=== PATIENT | male | born 1950 | race Caucasian/White ===

== ENCOUNTER → 2024-01-14 09:24 | Outpatient (REF) | payer MEDICARE, OTHER, SELFPAY ==
[2024-01-14 12:54] LABS: % Basophils 0.7 % (0-2); % Eosinophils 5.4 % (0-6); % Immature Granulocytes 0.2 % (0-0.5); % Lymphocytes 33.6 % (20.5-51.1); % Neutrophils 50.1 % (42.2-75.2); Absolute Eosinophils 0.2 10^3/uL (0-0.7); Absolute Lymphocytes 1.4 10^3/uL (1.2-3.4); Absolute Monocytes 0.4 10^3/uL (0.1-0.6); Absolute Neutrophils 2.1 10^3/uL (1.4-6.5); Hematocrit 43.3 % (39.0-52.0); Hemoglobin 14.9 g/dL (13.0-18.0); Mean Corp Hgb Conc. 34.4 g/dL (33.0-37.0); Mean Corpuscular Hgb 31.3 pg (27.0-31.0); Nucleated Red Blood Cells % 0 % (-); Red Blood Cell Count 4.76 10^6/uL (4.70-6.10); Red Cell Dist. Width 13.3 % (11.5-14.5); White Blood Cell Count 4.1 10^3/uL (4.8-10.8)
[2024-01-14 13:19] LABS: ALT (SGPT) 15 U/L (0-50); AST (SGOT) 24 U/L (17-59); Albumin 4.1 g/dl (3.5-5.0); Alkaline Phosphatase 66 U/L (38-126); HDL Cholesterol 58 mg/dl; LDL Cholesterol, Calculated 73 mg/dl; Total Cholesterol 158 mg/dl (50-199); Total Protein 6.8 g/dl (6.3-8.2); Triglyceride 135 mg/dl (10-149); Very Low Density Lipoprotein 27 mg/dl (0-30)
== END ==
LOC: HWLAB 09:24
PROVIDERS: ATTENDING PHYSICIAN Internal Medicine
DX: E78.2 Mixed hyperlipidemia (principal); I35.1 Nonrheumatic aortic (valve) insufficiency; E66.3 Overweight; D72.819 Decreased white blood cell count, unspecified
CPT/HCPCS: 36415; 80061; 80076; 85025

== ENCOUNTER → 2024-03-25 15:42 | Outpatient (REF) | payer MEDICARE, OTHER, SELFPAY | LOC: HWRCS 15:42 | PROVIDERS: ATTENDING PHYSICIAN Internal Medicine Cardiovascular Disease; FAMILY PHYSICIAN Internal Medicine | DX: I35.0 Nonrheumatic aortic (valve) stenosis (principal) | CPT/HCPCS: 93306 ==

== ENCOUNTER → 2024-05-26 09:17 | Outpatient (REF) | payer MEDICARE, OTHER, SELFPAY ==
[2024-05-26 09:59] LABS: % Basophils 0.8 % (0-2); % Eosinophils 5.5 % (0-6); % Immature Granulocytes 0.3 % (0-0.5); % Lymphocytes 34.1 % (20.5-51.1); % Monocytes 11.5 % (1.7-9.3); % Neutrophils 47.8 % (42.2-75.2); Absolute Eosinophils 0.2 10^3/uL (0-0.7); Absolute Lymphocytes 1.4 10^3/uL (1.2-3.4); Absolute Monocytes 0.5 10^3/uL (0.1-0.6); Absolute Neutrophils 1.9 10^3/uL (1.4-6.5); Hematocrit 43.3 % (39.0-52.0); Hemoglobin 14.9 g/dL (13.0-18.0); Mean Corp Hgb Conc. 34.4 g/dL (33.0-37.0); Mean Corpuscular Hgb 31.6 pg (27.0-31.0); Mean Corpuscular Volume 91.7 fL (80.0-94.0); Mean Platelet Volume 11.1 fL (7.4-10.4); Nucleated Red Blood Cells % 0 % (-); Platelet Count 161 10^3/uL (130-400); Red Blood Cell Count 4.72 10^6/uL (4.70-6.10); Red Cell Dist. Width 13.1 % (11.5-14.5)
[2024-05-26 10:15] LABS: ALT (SGPT) 17 U/L (0-50); AST (SGOT) 25 U/L (17-59); Albumin 4.2 g/dl (3.5-5.0); Alkaline Phosphatase 69 U/L (38-126); Blood Urea Nitrogen 16 mg/dl (9-20); Calcium 9.6 mg/dl (8.4-10.2); Carbon Dioxide 27 mmol/L (22-30); Chloride 106 mmol/L (98-107); Glucose 111 mg/dl (70-99); Potassium 4.3 mmol/L (3.5-5.1); Sodium 142 mmol/L (135-145); Total Bilirubin 0.8 mg/dl (0.2-1.3); Total Protein 6.7 g/dl (6.3-8.2); eGFR > 60.00
== END ==
LOC: SDSPAT 09:17
PROVIDERS: ATTENDING PHYSICIAN Internal Medicine Interventional Cardiology; FAMILY PHYSICIAN Internal Medicine; OTHER PHYSICIAN Internal Medicine Cardiovascular Disease
DX: Z01.818 Encounter for other preprocedural examination (principal); I35.0 Nonrheumatic aortic (valve) stenosis
CPT/HCPCS: 36415; 80053; 85025; 93005

== ENCOUNTER 2024-06-04 06:09 | Day surgery (SDC) | payer MEDICARE, OTHER, SELFPAY ==
[2024-05-26 09:33] VITALS: BMI 31.4
[2024-06-04] VITALS (42 sets, daily range): BP systolic 51–154; BP diastolic 31–101
[2024-06-04] MEDS: NSS 281 ML IV (06:49)
[2024-06-04] MEDS: LOW STRENGTH ASPIRIN 162 MG PO (07:07)
[2024-06-04] MEDS: NSS 1000 IV (08:55)
[2024-06-04] MEDS: LASIX 20 MG IV (08:59)
[2024-06-04] MEDS: ATROPINE 0.1 MG/ML SYRINGE 1 MG IV (09:44)
[2024-06-04] MEDS: TYLENOL 650 MG PO (09:47)
--- NOTE | 2024-06-04 09:50 | PTCARENOTE ---
HR drop to 20's noted at 0926, skin pale and diaphoretic, quickly unresponsive. Called for crash cart and provider notification. Dr Munoz passing by. Atropine given as ordered and given at 0926. Fluids wide open for BP drop to 51/31. HR and BP
recovered quickly within 2 minutes. No further interventions needed. Brief gaze to left side resolved and pt's senses back to normal. MINAYA, speech, sensation and vision all back to normal.Suspected vagal episode. When returned to bedside she
said he complained of migraine and feeling hot immediately before the event occurred. Pt does not recall that. He was also medicated for chronic left shoulder pain with Tylenol 650 mg. He denies chest/neck and jaw pain and also stated to Dr Del Rosario
that he's had a previous vagal episode.
--- NOTE | 2024-06-04 12:05 | ITS.CL.CATH ---
[employer] - Catheterization
Cardiac Catheterization
Procedure Report:
LEFT AND RIGHT HEART CATHETERIZATION
Date of Procedure: June 04, 2024
Referring: Sanjiv Hoover MD, Ph. D
PROCEDURES:
1. Left heart catheterization, coronary angiogram.
2. Right heart catheterization.
3. Ultrasound-guided access
INDICATION: Piter is a 73-year-old gentleman with past medical history of migraine headaches and moderate aortic stenosis with most recent echocardiogram showing a transaortic mean gradient of 36 mmHg with, episodic mild dyspnea on exertion who is
being referred to rule out obstructive CAD and assess invasive pressures.
ACCESS:
1. Right radial artery, 6 Pakistani sheath, under ultrasound guidance.
2. Right common femoral vein, 6 [place] sheath, under ultrasound guidance using a micropuncture kit.
HEMODYNAMICS : (mmHg)
RA (m) :12
RV (s/d,m) : 35/9, 14
PA (s/d, m) : 30/13, 20
PCWP (m) : 18
PA saturation: 67.5% on room air
AO saturation: 92.0% on room air
RA saturation: 68% on room air
Cardiac Output : 4.87 L/min
Cardiac Index : 2.35 L/min/m-2
Systemic vascular resistance: 1479 dsc^(-5)
Pulmonary vascular resistance: 1.85 root unit
Heart rate: 58bpm
AO (s/d) : 139/71
LV (s/d) : 163/12
LVEDP : 22
Mean transaortic invasive gradient of 34 mmHg, estimated aortic valve area of 1.01cm2
CORONARY FINDINGS
DOMINANCE: Right
LEFT MAIN: The left main artery is a large-caliber vessel which gives rise to the left anterior descending artery and the left circumflex artery. There is minimal luminal irregularities.
LEFT ANTERIOR DESCENDING: The left anterior descending artery is a medium to large caliber vessel which gives rise to multiple small caliber diagonal branches as it courses through the anterior interventricular groove and wraps around the apex.
There is minimal luminal irregularities.
CIRCUMFLEX: The left circumflex artery is a medium caliber vessel which gives rise to 1 major branching obtuse marginal branch. There is minimal luminal irregularities.
RIGHT CORONARY ARTERY: The right coronary artery is a large-caliber, dominant vessel which gives rise to the right posterior descending artery and the right posterolateral system. There is mild diffuse atherosclerotic plaque.
SEDATION: 59minutes of procedural sedation was utilized. An independent medical leader was present to assist with and help manage the patient's level of consciousness and physiologic status.
RADIATION SUMMARY: Fluoro Time (min): 4.5, Dose (mGy): 381.2, DAP (Gy.cm2) : 34.7
Closure Device: Vascular band over right radial artery, 13 cc of air.
CONCLUSIONS
1. No obstructive coronary artery disease.
2. Mildly elevated right left-sided filling pressures with normal cardiac output.
3. Moderate aortic stenosis. Mean transaortic invasive gradient of 34 mmHg, estimated aortic valve area of 1.01cm2.
RECOMMENDATIONS
1. Wean radial band per protocol. Complete bedrest per protocol.
2. Aggressive management of cardiovascular risk factors.
3. Trial low-dose diuretic to see if we can help with symptom improvement in his dyspnea on exertion in the setting of elevated filling pressures.
4. Ongoing surveillance of moderate aortic stenosis.
Copy to: Sanjiv Hoover MD, Ph. D
Cynthia Del Rosario MD, [facility]
--- NOTE | 2024-06-04 12:17 | W.PN.UPDATE ---
Update Note
Progress Note Update
Interventional cardiology update note
About 45 minutes to an hour after his case was completed while he was in recovery, patient had what seems like a vasovagal event where he had sudden onset of feeling hot and his took off his blankets and he was noted on telemetry to have
bradycardia down to heart rates of mid 20s and blood pressure as low as 51 systolic with transient LOC. He received 1 bolus of epinephrine along with wide-open IV fluids with complete recovery both from a symptom standpoint as well as hemodynamics.
We washed him for a long time in the heart catheterization lab and he had no recurrent symptoms with hemodynamic staying stable throughout. No issues at either of his access sites. No other complaints. In the setting we felt comfortable with
patient going home with strict directions in terms of when to call our office if there are any ongoing issues. Of note patient does mention prior diagnosis of vasovagal syncope about 25 years ago where he underwent a workup including a tilt study.
He also complained to me ongoing episodes of right-sided facial numbness and tingling as well as bilateral numbness and tingling as above his knees. Given his history of migraine headaches with atypical symptoms, we gave him information to call
neurology for a follow-up appointment for further evaluation.
Cynthia Del Rosario MD, FACC, [facility]
== END 2024-06-04 12:35 | disposition home or self-care (01) ==
LOC: CATH 06:09
PROVIDERS: ATTENDING PHYSICIAN Internal Medicine Interventional Cardiology; FAMILY PHYSICIAN Internal Medicine; OTHER PHYSICIAN Internal Medicine Cardiovascular Disease
DX: I35.0 Nonrheumatic aortic (valve) stenosis (principal); M19.90 Unspecified osteoarthritis, unspecified site; E78.5 Hyperlipidemia, unspecified; I10 Essential (primary) hypertension; I47.19 Other supraventricular tachycardia; R42 Dizziness and giddiness; R53.83 Other fatigue; G62.9 Polyneuropathy, unspecified; K22.2 Esophageal obstruction; G43.909 Migraine, unspecified, not intractable, without status migrainosus; K21.9 Gastro-esophageal reflux disease without esophagitis; Z79.899 Other long term (current) drug therapy; Z88.1 Allergy status to other antibiotic agents; Z88.2 Allergy status to sulfonamides; Z96.651 Presence of right artificial knee joint; I70.0 Atherosclerosis of aorta
CPT/HCPCS: 99152; 99153; 93460; C1894; Q9967

== ENCOUNTER → 2024-07-08 09:11 | Outpatient (REF) | payer MEDICARE, OTHER, SELFPAY ==
[2024-07-08 12:36] LABS: Blood Urea Nitrogen 16 mg/dl (9-20); Calcium 9.6 mg/dl (8.4-10.2); Carbon Dioxide 29 mmol/L (22-30); Chloride 105 mmol/L (98-107); Glucose 150 mg/dl (70-99); Potassium 4.4 mmol/L (3.5-5.1); Sodium 142 mmol/L (135-145); eGFR > 60.00
== END ==
LOC: HWLAB 09:11
PROVIDERS: ATTENDING PHYSICIAN Nurse Practitioner; FAMILY PHYSICIAN Internal Medicine
DX: I35.0 Nonrheumatic aortic (valve) stenosis (principal); R60.0 Localized edema
CPT/HCPCS: 36415; 80048

== ENCOUNTER → 2024-08-22 08:24 | Outpatient (REF) | payer MEDICARE, OTHER, SELFPAY ==
[2024-08-22 09:28] LABS: % Basophils 0.6 % (0-2); % Eosinophils 5.2 % (0-6); % Immature Granulocytes 0.2 % (0-0.5); % Lymphocytes 30.9 % (20.5-51.1); % Monocytes 11.1 % (1.7-9.3); Absolute Eosinophils 0.3 10^3/uL (0-0.7); Absolute Lymphocytes 1.6 10^3/uL (1.2-3.4); Absolute Monocytes 0.6 10^3/uL (0.1-0.6); Absolute Neutrophils 2.7 10^3/uL (1.4-6.5); Hematocrit 42.5 % (39.0-52.0); Hemoglobin 14.5 g/dL (13.0-18.0); Mean Corp Hgb Conc. 34.1 g/dL (33.0-37.0); Mean Corpuscular Hgb 30.9 pg (27.0-31.0); Mean Corpuscular Volume 90.4 fL (80.0-94.0); Mean Platelet Volume 12.6 fL (7.4-10.4); Nucleated Red Blood Cells % 0 % (-); Platelet Count 146 10^3/uL (130-400); Red Cell Dist. Width 13.1 % (11.5-14.5); White Blood Cell Count 5.2 10^3/uL (4.8-10.8)
[2024-08-22 10:10] LABS: ALT (SGPT) 19 U/L (0-50); AST (SGOT) 26 U/L (17-59); Albumin 4.3 g/dl (3.5-5.0); Alkaline Phosphatase 71 U/L (38-126); Blood Urea Nitrogen 17 mg/dl (9-20); Calcium 9.6 mg/dl (8.4-10.2); Carbon Dioxide 29 mmol/L (22-30); Chloride 102 mmol/L (98-107); Glucose 110 mg/dl (70-99); HDL Cholesterol 63 mg/dl; LDL Cholesterol, Calculated 88 mg/dl; Potassium 4.7 mmol/L (3.5-5.1); Sodium 143 mmol/L (135-145); Total Bilirubin 0.8 mg/dl (0.2-1.3); Total Cholesterol 175 mg/dl (50-199); Total Protein 6.9 g/dl (6.3-8.2); Triglyceride 121 mg/dl (10-149); Very Low Density Lipoprotein 24 mg/dl (0-30); eGFR > 60.00
[2024-08-22 10:39] LABS: PSA, Total - Screen 3.07 ng/ml (0.0-4.0)
== END ==
LOC: HWLAB 08:24
PROVIDERS: ATTENDING PHYSICIAN Internal Medicine
DX: Z00.00 Encounter for general adult medical examination without abnormal findings (principal); E78.2 Mixed hyperlipidemia; E66.3 Overweight; Z12.5 Encounter for screening for malignant neoplasm of prostate
CPT/HCPCS: 36415; 80053; 80061; 85025; G0103

== ENCOUNTER → 2024-11-26 08:54 | Outpatient (REF) | payer MEDICARE, OTHER, SELFPAY | LOC: HWRCS 08:54 | PROVIDERS: ATTENDING PHYSICIAN Internal Medicine Cardiovascular Disease; FAMILY PHYSICIAN Internal Medicine | DX: I35.0 Nonrheumatic aortic (valve) stenosis (principal) | CPT/HCPCS: 93306 ==

== ENCOUNTER → 2025-03-27 14:40 | Outpatient (REF) | payer MEDICARE, OTHER, SELFPAY | LOC: HWRCS 14:40 | PROVIDERS: ATTENDING PHYSICIAN Physician Assistant Medical; FAMILY PHYSICIAN Internal Medicine | DX: R55 Syncope and collapse (principal); I35.0 Nonrheumatic aortic (valve) stenosis | CPT/HCPCS: 93306 ==

== ENCOUNTER → 2025-07-21 09:42 | Outpatient (REF) | payer MEDICARE, OTHER, SELFPAY | LOC: HWRAD 09:42 | PROVIDERS: ATTENDING PHYSICIAN Internal Medicine | DX: R20.2 Paresthesia of skin (principal) | CPT/HCPCS: 72110 ==

== ENCOUNTER → 2025-08-04 08:44 | Outpatient (REF) | payer MEDICARE, OTHER, SELFPAY ==
[2025-08-04 10:08] LABS: Hematocrit 45.0 % (39.0-52.0); Hemoglobin 15.3 g/dL (13.0-18.0); Mean Corp Hgb Conc. 34.0 g/dL (33.0-37.0); Mean Corpuscular Volume 91.8 fL (80.0-94.0); Nucleated Red Blood Cells % 0 % (-); Platelet Count 130 10^3/uL (130-400); Red Cell Dist. Width 13.2 % (11.5-14.5)
[2025-08-04 11:07] LABS: ALT (SGPT) 20 U/L (0-50); AST (SGOT) 23 U/L (17-59); Albumin 4.4 g/dl (3.5-5.0); Alkaline Phosphatase 64 U/L (38-126); Blood Urea Nitrogen 14 mg/dl (9-20); Calcium 9.7 mg/dl (8.4-10.2); Carbon Dioxide 28 mmol/L (22-30); Chloride 105 mmol/L (98-107); Glucose 117 mg/dl (70-99); Potassium 4.5 mmol/L (3.5-5.1); Sodium 142 mmol/L (135-145); Total Protein 7.0 g/dl (6.3-8.2); eGFR > 60.00
[2025-08-04 11:38] LABS: TSH 1.89 uIU/ml (0.47-4.68)
[2025-08-04 11:42] LABS: Glycohemoglobin (HgbA1c) 6.1 % (4.0-5.6)
[2025-08-04 12:14] LABS: Folate 7.1 ng/ml (2.76-20); Vitamin B12 290 pg/ml (239-931)
[2025-08-06 14:23] LABS: ANA, IgG Reflex to HEp-2 None Detected (None Detected)
[2025-08-07 06:57] LABS: Vitamin B1, Whole Blood 138 nmol/L (70-180)
== END ==
LOC: HWLAB 08:44
PROVIDERS: ATTENDING PHYSICIAN Nurse Practitioner; FAMILY PHYSICIAN Internal Medicine
DX: R20.0 Anesthesia of skin (principal); R29.898 Other symptoms and signs involving the musculoskeletal system; R73.9 Hyperglycemia, unspecified
CPT/HCPCS: 36415; 80053; 82085; 82550; 82607; 82746; 83036; 84155; 84165; 84207; 84425; 84443; 85025; 85652; 86038

== ENCOUNTER → 2025-08-31 06:38 | Outpatient (REF) | payer MEDICARE, OTHER, SELFPAY ==
[2025-08-31 07:17] LABS: Hematocrit 44.1 % (39.0-52.0); Hemoglobin 14.9 g/dL (13.0-18.0); Mean Corp Hgb Conc. 33.8 g/dL (33.0-37.0); Mean Corpuscular Volume 94.8 fL (80.0-94.0); Nucleated Red Blood Cells % 0 % (-); Platelet Count 178 10^3/uL (130-400); Red Cell Dist. Width 13.2 % (11.5-14.5)
[2025-08-31 07:25] LABS: INR 1.01; PT 13.6 Sec (11.4-14.6)
[2025-08-31 07:30] VITALS: BP 150/78; BP_SYST 63
[2025-08-31] MEDS: ATIVAN 0.5 MG PO (07:30)
[2025-08-31 08:46] VITALS: BP 160/83
== END ==
LOC: RADI 06:38
PROVIDERS: ATTENDING PHYSICIAN Internal Medicine Hematology & Oncology; FAMILY PHYSICIAN Internal Medicine; REFERRING PHYSICIAN Physician Assistant
DX: D47.2 Monoclonal gammopathy (principal)
CPT/HCPCS: 36415; 38222; 77012; 85025; 85610; 88305; 88311; 88312; 88313

== ENCOUNTER → 2025-09-02 08:27 | Outpatient (REF) | payer MEDICARE, OTHER, SELFPAY ==
[2025-09-02 12:18] LABS: Hematocrit 42.3 % (39.0-52.0); Hemoglobin 14.4 g/dL (13.0-18.0); Mean Corp Hgb Conc. 34.0 g/dL (33.0-37.0); Mean Corpuscular Volume 92.0 fL (80.0-94.0); Nucleated Red Blood Cells % 0 % (-); Red Cell Dist. Width 13.1 % (11.5-14.5)
[2025-09-02 12:50] LABS: ALT (SGPT) 22 U/L (0-50); AST (SGOT) 25 U/L (17-59); Albumin 4.1 g/dl (3.5-5.0); Alkaline Phosphatase 66 U/L (38-126); Blood Urea Nitrogen 17 mg/dl (9-20); Calcium 9.4 mg/dl (8.4-10.2); Carbon Dioxide 28 mmol/L (22-30); Chloride 106 mmol/L (98-107); Glucose 107 mg/dl (70-99); HDL Cholesterol 59 mg/dl; LDL Cholesterol, Calculated 108 mg/dl; Potassium 4.3 mmol/L (3.5-5.1); Sodium 139 mmol/L (135-145); Total Protein 6.7 g/dl (6.3-8.2); Very Low Density Lipoprotein 19 mg/dl (0-30); eGFR > 60.00
[2025-09-02 13:20] LABS: PSA, Total - Screen 2.91 ng/ml (0.0-4.0)
== END ==
LOC: HWLAB 08:27
PROVIDERS: ATTENDING PHYSICIAN Internal Medicine
DX: E66.3 Overweight (principal); E78.5 Hyperlipidemia, unspecified; R73.9 Hyperglycemia, unspecified; E78.2 Mixed hyperlipidemia; Z12.5 Encounter for screening for malignant neoplasm of prostate
CPT/HCPCS: 36415; 80053; 80061; 84153; 84154; 85025; G0103

== ENCOUNTER → 2025-09-28 10:29 | Outpatient (REF) | payer MEDICARE, OTHER, SELFPAY | LOC: HWRAD 10:29 | PROVIDERS: ATTENDING PHYSICIAN Internal Medicine Critical Care Medicine; FAMILY PHYSICIAN Internal Medicine | DX: R91.1 Solitary pulmonary nodule (principal) | CPT/HCPCS: 71250 ==

== ENCOUNTER 2025-10-05 06:22 | Day surgery (SDC) | payer MEDICARE, OTHER, SELFPAY ==
[2025-10-02 13:30] VITALS: BMI 31.2
[2025-10-02 14:52] LABS: INR 1.00; PT 13.3 Sec (11.4-14.6)
[2025-10-02 14:53] LABS: APTT 26.6 Sec (23.4-35.0)
[2025-10-05] VITALS (10 sets, daily range): BP systolic 99–140; BP diastolic 59–82; BMI 30.3
[2025-10-05] MEDS: NSS 500 IV (09:04)
== END 2025-10-05 13:49 | disposition home or self-care (01) ==
LOC: SDS 06:22
PROVIDERS: ATTENDING PHYSICIAN Internal Medicine; FAMILY PHYSICIAN Otolaryngology
DX: C34.11 Malignant neoplasm of upper lobe, right bronchus or lung (principal); Z80.1 Family history of malignant neoplasm of trachea, bronchus and lung
CPT/HCPCS: 31629; 31628; 31652; 31654; 31624; 71045; 76000; 85610; 85730; 87070; 87102; 87116; 87205; 88112; 88173; 88305; 88333; 88342; 94640

== ENCOUNTER → 2025-10-07 12:00 | Outpatient (REF) | payer MEDICARE, OTHER, SELFPAY | LOC: DHSLP 12:00 | PROVIDERS: ATTENDING PHYSICIAN Internal Medicine; FAMILY PHYSICIAN Internal Medicine | DX: G47.30 Sleep apnea, unspecified (principal); R06.83 Snoring; R09.02 Hypoxemia | CPT/HCPCS: 95800 ==

== ENCOUNTER → 2025-10-22 12:33 | Outpatient (REF) | payer MEDICARE, OTHER, SELFPAY | LOC: HWRCS 12:33 | PROVIDERS: ATTENDING PHYSICIAN Internal Medicine Cardiovascular Disease; FAMILY PHYSICIAN Internal Medicine | DX: I35.0 Nonrheumatic aortic (valve) stenosis (principal) | CPT/HCPCS: 93306 ==